=== PATIENT | male | born 1960 | race Caucasian/White ===

== ENCOUNTER 2017-04-09 16:43 | Emergency (ER) | payer MEDICARE, OTHER ==
[2017-04-09] MEDS ORDERED: ONDANSETRON HCL INJ/PF 4 MG/2 ML SDV IV ONE (17:46)
[2017-04-09] MEDS ORDERED: MORPHINE SULFATE 10 MG/ML INJ IV ONE (17:46)
--- NOTE | 2017-04-09 17:49 | ER Document Report ---
ED Medical Screen (RME) - General Chief Complaint: Lower Abdominal Pain Stated Complaint: ABDOMINAL PAIN Time Seen by Provider: 04/09/17 17:45 Notes: In triage patient becoming somewhat agitated and swearing. Stating he is having severe pain. Unable to get adequate exam in triage. [facility]. He states he started to have some vomiting today. TRAVEL OUTSIDE OF THE [place] IN LAST 30 DAYS: No - Related Data Allergies/Adverse Reactions: No Known Allergies Allergy (Verified 04/09/17 16:45) Home Medications: Current Home Medications Dorzolamide HCl/Timolol Maleat [Dorzolamide-Timolol Eye Drops] 1 drop OU BID [History] Ibuprofen 1 tab PO TID PRN 04/09/17 [History] Latanoprost [Xalatan 0.005% Oph Soln 2.5 ml] 1 drop OU QHS 04/09/17 [History] Methocarbamol 1 tab PO TID 04/09/17 [History] Mineral Oil/Petrolatum,White [Lubricant Pm Eye Ointment] 1 applic TOP QHS [History] Topiramate 1 tab PO QAM 04/09/17 [History] Topiramate 3 tab PO QHS 04/09/17 [History] Past Medical History - Past Medical History Cardiac Medical History: Reports: Hx Coronary Artery Disease Psychiatric Medical History: Reports: Hx Depression Past Surgical History: Reports: Hx Appendectomy, Hx Cardiac Catheterization, Hx Nose Surgery - deviated septum, Hx Tonsillectomy Physical Exam - Vital signs Vitals: Temp Pulse Resp BP Pulse Ox 98.6 F 105 H 20 149/97 H 98 04/09/17 16:50 04/09/17 16:50 04/09/17 16:50 04/09/17 16:50 04/09/17 16:50 Course - Vital Signs Vital signs: Temp Pulse Resp BP Pulse Ox 98.6 F 105 H 20 149/97 H 98 04/09/17 16:50 04/09/17 16:50 04/09/17 16:50 04/09/17 16:50 04/09/17 16:50
[2017-04-09 18:25] LABS: ABSOLUTE BASOPHILS # (AUTO) 0.1 10^3/uL (0.0-0.2); ABSOLUTE EOSINOPHILS # (AUTO) 0.3 10^3/uL (0.0-0.6); ABSOLUTE LYMPHOCYTES (AUTO) 2.1 10^3/uL (0.5-4.7); ABSOLUTE MONOCYTES (AUTO) 0.9 10^3/uL (0.1-1.4); ABSOLUTE NEUT (AUTO) 8.3 10^3/uL (1.7-8.2); BASOPHILS % (AUTO) 0.8 % (0-2); EOSINOPHILS % (AUTO) 2.7 % (0-6); HEMATOCRIT 44.8 % (37.9-51.0); HEMOGLOBIN 15.6 g/dL (13.5-17.0); LYMPHOCYTES % (AUTO) 18.2 % (13-45); MEAN CORPUSCULAR HEMOGLOBIN 31.5 pg (27.0-33.4); MEAN CORPUSCULAR HGB CONC 34.9 g/dL (32.0-36.0); MEAN CORPUSCULAR VOLUME 90 fl (80-97); MONOCYTES % (AUTO) 7.6 % (3-13); RED BLOOD COUNT 4.96 10^6/uL (4.35-5.55); RED CELL DISTRIBUTION WIDTH 12.8 % (11.5-14.0); SEGMENTED NEUTROPHILS % (AUTO) 70.7 % (42-78); WHITE BLOOD COUNT 11.7 10^3/uL (4.0-10.5)
[2017-04-09 18:32] LABS: AMORPHOUS SEDIMENT,URINE TRACE /HPF; APPEARANCE,URINE CLOUDY; BILIRUBIN,URINE NEGATIVE (NEGATIVE); GLUCOSE, URINE NEGATIVE (NEGATIVE); KETONES,URINE NEGATIVE (NEGATIVE); LEUKOCYTE ESTERASE,URINE NEGATIVE (NEGATIVE); NITRITE,URINE NEGATIVE (NEGATIVE); PROTEIN,URINE NEGATIVE (NEGATIVE); URINE SPECIFIC GRAVITY 1.015; UROBILINOGEN,URINE NEGATIVE mg/dL (<2.0)
--- NOTE | 2017-04-09 18:39 | ER Document Report ---
ED General - General Chief Complaint: Lower Abdominal Pain Stated Complaint: ABDOMINAL PAIN Time Seen by Provider: 04/09/17 17:45 Notes: 48-year-old male complains of left inguinal hernia pain for 2 years, worse for 1 day today with a single episode of vomiting this morning. After that episode of vomiting he is eating 2 meals had no belly pain or vomiting. No fevers. No skin changes. Hernia goes in and out and is currently out. Patient was seen at triage where hernia was not adequately evaluated secondary to patient positioning, labs are ordered. The patient states he has seen a surgeon but they were afraid to operate on him "because of the mass that he see on TV." He says that he was referred to pain management for the hernia. TRAVEL OUTSIDE OF THE [place] IN LAST 30 DAYS: No - Related Data Allergies/Adverse Reactions: No Known Allergies Allergy (Verified 04/09/17 16:45) Home Medications: Current Home Medications Aspirin [Aspirin 81 mg Chewable Tablet] 1 tab PO DAILY 04/09/17 [History] Dorzolamide HCl/Timolol Maleat [Dorzolamide-Timolol Eye Drops] 1 drop OU BID [History] Ibuprofen 1 tab PO TID PRN 04/09/17 [History] Latanoprost [Xalatan 0.005% Oph Soln 2.5 ml] 1 drop OU QHS 04/09/17 [History] Methocarbamol 1 tab PO TID 04/09/17 [History] Mineral Oil/Petrolatum,White [Lubricant Pm Eye Ointment] 1 applic TOP QHS [History] Topiramate 1 tab PO QAM 04/09/17 [History] Topiramate 3 tab PO QHS 04/09/17 [History] Past Medical History - Social History Smoking Status: Current Every Day Smoker Smoking Education Provided: Yes - The patient ED visit today was directly related to their abuse of tobacco. Frequency of alcohol use: twice a month Drug Abuse: Marijuana Family History: None Patient has suicidal ideation: No Patient has homicidal ideation: No - Past Medical History Cardiac Medical History: Reports: Hx Coronary Artery Disease Renal/ Medical History: Denies: Hx Peritoneal Dialysis Psychiatric Medical History: Reports: Hx Depression Past Surgical History: Reports: Hx Appendectomy, Hx Cardiac Catheterization, Hx Nose Surgery - deviated septum, Hx Tonsillectomy Review of Systems - Review of Systems Notes: REVIEW OF SYSTEMS GEN: Denies fever, chills, weight loss ENT: Denies sore throat, nasal discharge, ear pain EYES: Denies blurry vision, eye pain, discharge CV: Denies chest pain, palpitations, edema RESP: Denies cough, shortness of breath, wheezing GI: Abdominal pain hernia MSK: Denies joint pain/swelling, edema, SKIN: Denies rash, skin lesions LYMPH: Denies swollen glands/lymph nodes NEURO: Denies headache, focal weakness or numbness, dizziness PSYCH: Denies depression, suicidal or homicidal ideation PHYSICAL EXAMINATION General: No acute distress, well-nourished Head: Atraumatic, normocephalic ENT: Mouth normal, oropharynx moist, no exudates or tonsillar enlargement Eyes: Conjunctiva normal, pupils equal, lids normal Neck: No JVD, supple, no guarding CVS: Normal rate, regular rhythm, no murmurs Resp: No resp distress, equal and normal breath sounds bilaterally GI: Nondistended, soft, no tenderness to palpation, no rebound or guarding. Genitourinary: Normal penis and scrotum, no hernia or defect felt. No tenderness. Ext: No deformities, no edema, normal range of motion in upper and lower ext Back: No CVA or midline TTP Skin: No rash, warm Lymphatic: No lymphadeopathy noted Neuro: Awake, alert. Face symmetric. GCS 15. Physical Exam - Vital signs Vitals: Temp Pulse Resp BP Pulse Ox 98.6 F 105 H 20 149/97 H 98 04/09/17 16:50 04/09/17 16:50 04/09/17 16:50 04/09/17 16:50 04/09/17 16:50 Course - Re-evaluation Re-evalutation: 04/09/17 18:38 Tonic inguinal hernia pain without incarceration. No need for imaging. Nontender. Patient stable for discharge home. He is talking about pain management so we will allow him to follow-up with his regular doctor regarding pain management for this. I have discussed with the patient there likely diagnosis, aftercare plan, follow-up plans and my usual and customary return precautions. They verbalized understanding of this. - Vital Signs Vital signs: Temp Pulse Resp BP Pulse Ox 98.6 F 105 H 20 149/97 H 98 04/09/17 16:50 04/09/17 16:50 04/09/17 16:50 04/09/17 16:50 04/09/17 16:50 - Laboratory Result Diagrams: 04/09/17 17:55 04/09/17 17:55 Laboratory results interpreted by me: 04/09/17 17:55 WBC 11.7 H Absolute Neutrophils 8.3 H Discharge - Discharge Clinical Impression: Inguinal hernia of right side without obstruction or gangrene Condition: Good Disposition: HOME, SELF-CARE Additional Instructions: Talk to your regular doctor about surgical referral and ongoing pain management. Prescriptions: Bisacodyl [Dulcolax] 5 mg PO BID #14 tablet. Hydrocodone/Acetaminophen [Hopkins 5-325 Tablet] 1 each PO QIDP PRN #11 tablet PRN Reason:
[2017-04-09 18:48] LABS: ALANINE AMINOTRANSFERASE 13 U/L (21-72); ALBUMIN 4.5 g/dL (3.5-5.0); ALKALINE PHOSPHATASE 79 U/L (38-126); ANION GAP 14 (5-19); ASPARTATE AMINO TRANSFERASE 19 U/L (17-59); BILIRUBIN,DIRECT 0.3 mg/dL (0.0-0.4); BILIRUBIN,TOTAL 0.3 mg/dL (0.2-1.3); BLOOD UREA NITROGEN 20 mg/dL (7-20); CALCIUM 9.8 mg/dL (8.4-10.2); CARBON DIOXIDE 18 mmol/L (22-30); CHLORIDE 114 mmol/L (98-107); CREATININE RESULT 1.12 mg/dL (0.52-1.25); GLUCOSE 93 mg/dL (75-110); SODIUM 146.1 mmol/L (137-145); TOTAL PROTEIN 7.2 g/dL (6.3-8.2)
[2017-04-09 19:28] VITALS: BP 129/76
== END 2017-04-09 19:28 | disposition home or self-care (01) ==
LOC: ER 16:43
DX: K40.90 Unilateral inguinal hernia, without obstruction or gangrene, not specified as recurrent (principal); R11.10 Vomiting, unspecified; I25.10 Atherosclerotic heart disease of native coronary artery without angina pectoris; F17.200 Nicotine dependence, unspecified, uncomplicated; Z71.6 Tobacco abuse counseling
CPT/HCPCS: 99284; 96374; 96375; 36415; 85025; 80053; 81001; J2270; J2405

== ENCOUNTER → 2017-09-07 | Outpatient (CLI) | payer OTHER ==
--- NOTE | 2017-09-07 16:04 | RADIOLOGY REPORT (SQ) ---
EXAM DESCRIPTION: CT ABD/PELVIS WITH IV ONLY COMPLETED DATE/TIME: 09/07/2017 1:44 pm REASON FOR STUDY: R10.32 LEFT LOWER QUADRANT PAIN R10.32 LEFT LOWER QUADRANT PAIN COMPARISON: None. TECHNIQUE: CT scan of the abdomen and pelvis performed using helical scanning technique with dynamic intravenous contrast injection. No oral contrast. Images reviewed with lung, soft tissue, and bone windows. Reconstructed coronal and sagittal MPR images reviewed. Delayed images for evaluation of the urinary system also acquired. All images stored on PACS. All CT scanners at this facility use dose modulation, iterative reconstruction, and/or weight based d osing when appropriate to reduce radiation dose to as low as reasonably achievable (ALARA). [facility]: Dose Right [facility]: CareDose [facility]: Dose Right [facility]: Teradose 4D [facility]: NBO TV CONTRAST TYPE AND DOSE: contrast/concentration: Isovue 370.00 mg/ml; Total Contrast Delivered: 100.0 ml; Total Saline Delivered: 72.0 ml RENAL FUNCTION: Creatinine 1.2 RADIATION DOSE: CT Rad equipment meets quality standard of care and radiation dose reduction techniq ues were employed. CTDIvol: 13.8 - 15.8 mGy. DLP: 1625 mGy-cm.. LIMITATIONS: None. FINDINGS: LOWER CHEST: No significant findings. No nodules or infiltrates. LIVER: Normal size. No masses. No dilated ducts. SPLEEN: Normal size. No focal lesions. PANCREAS: No masses. No significant calcifications. No adjacent inflammation or peripancreatic fluid collections. Pancreatic duct not dilated. GALLBLADDER: No identified stones by CT criteria. No inflammatory changes to suggest cholecystitis. ADRENAL GLANDS: No significant masses or asymmetry. RIGHT KIDNEY AND URETER: No solid masses. No significant calcifications. No hydronephrosis or hyd roureter. LEFT KIDNEY AND URETER: No solid masses. Small renal cyst is identified. No significant calcificati ons. No hydronephrosis or hydroureter. AORTA AND VESSELS: No aneurysm. No dissection. Renal arteries, SMA, celiac without stenosis. RETROPERITONEUM: No retroperitoneal adenopathy, hemorrhage or masses. BOWEL AND PERITONEAL CAVITY: No masses or inflammatory changes. No free fluid or peritoneal masses. APPENDIX: Status post appendectomy PELVIS: No mass. No free fluid. There is some prominence of the prostate gland with a prostatic imp ression on the bladder base%period% ABDOMINAL WALL: No masses. No hernias. BONES: No significant or acute findings. OTHER: No other significant finding. IMPRESSION: NO SIGNIFICANT OR ACUTE FINDING IN THE ABDOMEN OR PELVIS ON CT SCAN WITH IV CONTRAST. TECHNICAL DOCUMENTATION: JOB ID: [id number] Quality ID # [id number]: Final reports with documentation of one or more dose reduction techniques (e.g., Au tomated exposure control, adjustment of the mA and/or kV according to patient size, use of iterative reconstruction technique) 2010 [employer]- All Rights Reserved Reading location - IP/workstation name: [email or web address]
== END ==
LOC: RAD 14:27
PROVIDERS: ATTEND Surgery
DX: R10.32 Left lower quadrant pain (principal)
CPT/HCPCS: 74177; 82565

== ENCOUNTER 2020-03-26 09:50 | Emergency (ER) | payer OTHER ==
[2020-03-26] MEDS ORDERED: HYDROCODONE/ACETAMINOPHEN 5-325 MG (6 TAB/ER DISP) PO PRN (10:56)
[2020-03-26] MEDS ORDERED: HYDROCODONE/ACETAMINOPHEN 5-325 MG TABLET PO ONE (11:01)
--- NOTE | 2020-03-26 11:29 | RADIOLOGY REPORT (SQ) ---
EXAM DESCRIPTION: WRIST LEFT 3 VIEWS IMAGES COMPLETED DATE/TIME: 03/26/2020 11:10 am REASON FOR STUDY: injury COMPARISON: None. NUMBER OF VIEWS: Three views. TECHNIQUE: AP, lateral, and oblique radiographic images acquired of the left wrist. LIMITATIONS: None. FINDINGS: MINERALIZATION: Normal. BONES: No acute fracture or dislocation. The normal carpal alignment is preserved. SOFT TISSUES: Chondrocalcinosis of the triangular fibrocartilage complex. OTHER: No other findings. IMPRESSION: Chondrocalcinosis of the triangular fibrocartilage complex. There is no associated acut e fracture. TECHNICAL DOCUMENTATION: JOB ID: [id number] 2010 [employer]- All Rights Reserved Reading location - IP/workstation name: [email or web address]
--- NOTE | 2020-03-26 11:35 | ER Document Report ---
HPI - HPI Patient complains to provider of: Left wrist injury Time Seen by Provider: 03/26/20 10:52 Pain Level: 4 Context: 59-year-old male past medical history significant for glaucoma, angina, arthritis presents to the emergency room with left wrist pain. States [place] landing on his left wrist with his hand extended outward. Has not taken anything for the pain. No previous fractures. Patient is right-handed. Has not taken any medications for symptoms. Associated Symptoms: None Exacerbated by: Movement Relieved by: Remaining still Similar symptoms previously: No Recently seen / treated by doctor: No - ROS Systems Reviewed and Negative: Yes All other systems reviewed and negative - NEURO Neurology: DENIES: Weakness - MUSCULOSKELETAL Musculoskeletal: REPORTS: Extremity pain - DERM Skin Color: Normal Skin Problems: None Past Medical History - General Information source: Patient - Social History Smoking Status: Current Every Day Smoker Frequency of alcohol use: Social Drug Abuse: Marijuana Family History: None, Reviewed & Not Pertinent - Past Medical History Cardiac Medical History: Reports: Hx Coronary Artery Disease Renal/ Medical History: Denies: Hx Peritoneal Dialysis Psychiatric Medical History: Reports: Hx Depression Past Surgical History: Reports: Hx Appendectomy, Hx Cardiac Catheterization, Hx Nose Surgery - deviated septum, Hx Tonsillectomy Vertical Provider Document - CONSTITUTIONAL Agree With Documented VS: Yes Exam Limitations: No Limitations General Appearance: Mild Distress - INFECTION CONTROL TRAVEL OUTSIDE OF THE [place] IN LAST 30 DAYS: No - HEENT HEENT: Atraumatic, Normocephalic - NECK Neck: Normal Inspection, Supple - RESPIRATORY Respiratory: Breath Sounds Normal, No Respiratory Distress - CARDIOVASCULAR Cardiovascular: Regular Rate, Regular Rhythm, No Murmur - MUSCULOSKELETAL/EXTREMETIES Musculoskeletal/Extremeties: Tender - Tenderness on palpation to the left distal radius. There is obvious swelling. There is painful range of motion with flexion, extension as well as lateral movement to the left wrist. Questionable deformity noted. - NEURO Level of Consciousness: Awake, Alert, Appropriate Motor/Sensory: No Motor Deficit, No Sensory Deficit Notes: Positive left radial pulse. Capillary refill less than 3 seconds. - DERM Integumentary: Warm, Dry, No Rash Course - Re-evaluation Re-evalutation: 03/26/20 11:47 Patient is resting comfortably with decreased pain. Reviewed x-ray findings of chondrocalcinosis at the the triangular fibrocartilage complex. Patient was counseled to rest, ice, elevate can take Motrin as needed for pain. Michael wrap for comfort. Michael wrap applied by nursing staff as documented. Follow-up with primary care physician if not improving in 2 to 3 days. Patient was given strict return to the emergency room guidelines. Return for any new or worsening symptoms. All questions were answered. Patient verbalized understanding and agrees with plan of care. 03/26/20 16:32 - Vital Signs Vital signs: Temp Pulse Resp BP Pulse Ox 98.2 F 90 16 125/89 H 94 03/26/20 10:04 03/26/20 10:04 03/26/20 10:04 03/26/20 10:04 03/26/20 10:04 - Diagnostic Test Radiology reviewed: Reports reviewed Procedures - Immobilization Left Wrist Time completed: 12:09 Pre-Proc Neuro Vasc Exam: Normal Immobilizer type: Michael wrap Performed by: RN Post-Proc Neuro Vasc Exam: Normal Alignment checked and good: Yes Discharge - Discharge Clinical Impression: Chondrocalcinosis Left wrist injury Qualifiers: Encounter type: initial encounter Qualified Code(s): S69.92XA - Unspecified injury of left wrist, hand and finger(s), initial encounter Condition: Stable Disposition: HOME, SELF-CARE Instructions: Pseudogout ([facility]) Additional Instructions: Wear Michael wrap for comfort. Tylenol or Motrin for pain. Follow-up with primary care physician if not improving in 2 to 3 days. Return to the emergency room for any new or worsening symptoms. Referrals: [facility] [Primary [facility]] - Follow up as needed
[2020-03-26 12:11] VITALS: BP 121/81
== END 2020-03-26 12:10 | disposition home or self-care (01) ==
LOC: ER 09:50
DX: M11.232 Other chondrocalcinosis, left wrist (principal); S69.92XA Unspecified injury of left wrist, hand and finger(s), initial encounter; M25.532 Pain in left wrist; W01.0XXA Fall on same level from slipping, tripping and stumbling without subsequent striking against object, initial encounter; Y92.828 Other wilderness area as the place of occurrence of the external cause; F17.200 Nicotine dependence, unspecified, uncomplicated; H40.9 Unspecified glaucoma; I25.10 Atherosclerotic heart disease of native coronary artery without angina pectoris
CPT/HCPCS: 99283